=== PATIENT | female | born 1965 | race American Indian/Alaskan Native ===

== ENCOUNTER 2016-06-07 07:09 | Inpatient (IN) | payer OTHER ==
[2016-06-07 07:58] LABS: BUN/Creatinine Ratio 15.71; Calcium 9.5 mg/dL (8.4-10.2); Chloride 88.2 mmol/L (98-107)
[2016-06-07 08:02] LABS: Basophils % (Auto) 0.3 % (0.0-1.8); Hematocrit 39.1 % (30.3-42.9); Hemoglobin 12.4 gm/dl (10.1-14.3); Mean Corpuscular HGB Conc 32 % (30-34); Mean Corpuscular Hemoglobin 31 pg (28-32); Mean Corpuscular Volume 98 fl (79-97); Platelet Count 188 K/mm3 (140-440); Red Blood Count 3.97 M/mm3 (3.65-5.03); Red Cell Distribution Width 13.1 % (13.2-15.2); White Blood Count 5.3 K/mm3 (4.5-11.0)
[2016-06-07 08:07] LABS: Potassium 6.1 mmol/L (3.6-5.0)
[2016-06-07] MEDS ORDERED: NACL 0.9% 1000 ML 2,000 ML IV ONE (08:10)
[2016-06-07] MEDS ORDERED: ZOFRAN IV ONE (08:13)
[2016-06-07] MEDS ORDERED: BABY ASPIRIN PO ONE (08:13)
--- NOTE | 2016-06-07 08:13 | Emergency Department Report ---
HPI - General Chief Complaint: Nausea/Vomiting/Diarrhea Time Seen by Provider: 06/07/16 08:06 - HPI HPI: The patient is a 51-year-old female who presents for evaluation of chest pain, abdominal pain, nausea, and vomiting. The patient has history of diabetes. The patient states that her abdominal pain and chest pain began one day ago, having constant since onset, moderate in severity, cramping and squeezing in quality, exacerbated with vomiting. Chest has multiple episodes of nausea and nonbilious, nonbloody emesis. The patient denies fever, dyspnea, syncope, hemoptysis, diarrhea, blood in the stool, dark tarry stool, dysuria, hematuria, flank pain, genital discharge, inability to pass flatus. ED Past Medical Hx - Past Medical History Previous Medical History?: Yes Hx Hypertension: Yes Hx Congestive Heart Failure: No Hx Diabetes: Yes (iddm) Hx Headaches / Migraines: Yes Hx Asthma: No Hx COPD: No Additional medical history: fx R leg. high cholesterol - Surgical History Past Surgical History?: Yes Additional Surgical History: bilateral tubal ligation - Social History Smoking Status: Never Smoker Substance Use Type: Alcohol, Prescribed - Medications Home Medications: Home Medications Medication Instructions Recorded Confirmed Last Taken Type Amitriptyline [Elavil] 25 mg PO QHS 03/22/16 03/22/16 Unknown History Ascorbic Acid [Vitamin C] 500 mg PO TID 03/22/16 03/22/16 Unknown History Aspirin EC [Aspirin Enteric Coated 81 mg PO QDAY 03/22/16 03/22/16 Unknown History TAB] Cyanocobalamin [Vitamin B-12] 1,000 mcg IM QMONTH 03/22/16 03/22/16 Unknown History Docusate Sodium [Dok] 100 mg PO BID 03/22/16 03/22/16 Unknown History Enalapril Maleate [Vasotec] 10 mg PO BID 03/22/16 03/22/16 Unknown History Ferrous Sulfate [Feosol 325 MG tab] 325 mg PO TID 03/22/16 03/22/16 Unknown History Insulin Aspart [NovoLOG Flexpen] 6 units SQ AC 03/22/16 03/22/16 Unknown History Insulin Detemir [Levemir VIAL] 40 unit SQ BID 03/22/16 03/22/16 Unknown History Loratadine 10 mg PO DAILY 03/22/16 03/22/16 Unknown History Omeprazole 20 mg PO BID 03/22/16 03/22/16 Unknown History Pravastatin 80 mg PO QHS 03/22/16 03/22/16 Unknown History Zolpidem [Ambien] 10 mg PO QHS 03/22/16 03/22/16 Unknown History ED Review of Systems ROS: Stated complaint: NAUSEA/VOMITING Other details as noted in HPI Constitutional: denies: fever ENT: denies: throat or neck pain Respiratory: denies: cough, shortness of breath Cardiovascular: reports chest pain Endocrine: denies unexplained weight loss or gain Gastrointestinal: reports abdominal pain, nausea Genitourinary: denies: dysuria Musculoskeletal: denies: leg swelling Skin: denies: rash Neurological: denies: headache Hematological/Lymphatic: denies: easy bleeding or easy bruising Psych: denies sadness or hopelessness Physical Exam - Physical Exam Vital Signs: Vital Signs 06/07/16 06/07/16 07:18 08:09 Temperature 97.8 F Pulse Rate 113 H 100 H Respiratory 20 15 Rate Blood Pressure 130/70 Blood Pressure 132/63 [Right] O2 Sat by Pulse 100 100 Oximetry Physical Exam: General: well-nourished, well-developed, no acute distress Head: Normocephalic, atraumatic Eyes: normal sclera ENT: Mucous membranes are pale and dry Neck: No neck stiffness, no cervical adenopathy Respiratory: Breath sounds equal bilaterally, no wheezing, rales, or rhonchi Cardio: S1 and S2 present, no murmurs, rubs, gallops, capillary refill is delayed Abdomen: Normoactive bowel sounds, soft abdomen, generalized tenderness to palpation present, no rigidity, no guarding or rebound tenderness Musc: No pitting edema Skin: No rash Neuro: no facial drooping, normal speech Psych: Normal affect ED Course Vital Signs 06/07/16 06/07/16 07:18 08:09 Temperature 97.8 F Pulse Rate 113 H 100 H Respiratory 20 15 Rate Blood Pressure 130/70 Blood Pressure 132/63 [Right] O2 Sat by Pulse 100 100 Oximetry ED Medical Decision Making - Lab Data Result diagrams: 06/07/16 07:30 06/07/16 12:37 - Medical Decision Making The patient was seen and examined by myself. The patient is placed on a child monitor and continuous pulse ox. On initial evaluation, the patient was found to be in no distress. Evaluation orders were placed. The patient given 1 L normal saline fluid bolus for treatment of dehydration. The patient declined pain medicine. The patient is given IV Zofran for nausea and vomiting. Lab results reveal elevated potassium of 6, low pH 7.19, elevated glucose 324, elevated anion gap, and low bicarbonate, consistent with diabetic ketoacidosis. The patient is given IV insulin and started on insulin infusion for treatment of. The on-call hospitalist service was contacted. They agreed to admit the patient for further treatment and close monitoring. The ED admit order was placed. The patient was admitted in guarded condition. Critical care attestation.: If time is entered above; I have spent that time in minutes in the direct care of this critically ill patient, excluding procedure time. ED Disposition Clinical Impression: Dehydration, Acute hyperkalemia DKA (diabetic ketoacidoses) Qualifiers: Diabetes mellitus type: type 2 Diabetes mellitus complication detail: without coma Qualified Code(s): E13.10 - Other specified diabetes mellitus with ketoacidosis without coma Disposition: OP ADMITTED IP TO THIS HOSP Is pt being admited?: Yes Does the pt Need Aspirin: Yes Condition: Serious Instructions: Diabetic Ketoacidosis (ED) Referrals: PRIMARY CARE, [Primary Care Provider] - 3-5 Days Time of Disposition: 08:12
--- NOTE | 2016-06-07 08:27 | Emergency Department Report ---
HPI - General Chief Complaint: Nausea/Vomiting/Diarrhea Time Seen by Provider: 06/07/16 08:06 ED Past Medical Hx - Past Medical History Previous Medical History?: Yes Hx Hypertension: Yes Hx Congestive Heart Failure: No Hx Diabetes: Yes (iddm) Hx Headaches / Migraines: Yes Hx Asthma: No Hx COPD: No Additional medical history: fx R leg. high cholesterol - Surgical History Past Surgical History?: Yes Additional Surgical History: bilateral tubal ligation - Social History Smoking Status: Never Smoker Substance Use Type: Alcohol, Prescribed - Medications Home Medications: Home Medications Medication Instructions Recorded Confirmed Last Taken Type Amitriptyline [Elavil] 25 mg PO QHS 03/22/16 03/22/16 Unknown History Ascorbic Acid [Vitamin C] 500 mg PO TID 03/22/16 03/22/16 Unknown History Aspirin EC [Aspirin Enteric Coated 81 mg PO QDAY 03/22/16 03/22/16 Unknown History TAB] Cyanocobalamin [Vitamin B-12] 1,000 mcg IM QMONTH 03/22/16 03/22/16 Unknown History Docusate Sodium [Dok] 100 mg PO BID 03/22/16 03/22/16 Unknown History Enalapril Maleate [Vasotec] 10 mg PO BID 03/22/16 03/22/16 Unknown History Ferrous Sulfate [Feosol 325 MG tab] 325 mg PO TID 03/22/16 03/22/16 Unknown History Insulin Aspart [NovoLOG Flexpen] 6 units SQ AC 03/22/16 03/22/16 Unknown History Insulin Detemir [Levemir VIAL] 40 unit SQ BID 03/22/16 03/22/16 Unknown History Loratadine 10 mg PO DAILY 03/22/16 03/22/16 Unknown History Omeprazole 20 mg PO BID 03/22/16 03/22/16 Unknown History Pravastatin 80 mg PO QHS 03/22/16 03/22/16 Unknown History Zolpidem [Ambien] 10 mg PO QHS 03/22/16 03/22/16 Unknown History ED Review of Systems ROS: Stated complaint: NAUSEA/VOMITING Other details as noted in HPI Physical Exam - Physical Exam Vital Signs: Vital Signs 06/07/16 06/07/16 07:18 08:09 Temperature 97.8 F Pulse Rate 113 H 100 H Respiratory 20 15 Rate Blood Pressure 130/70 Blood Pressure 132/63 [Right] O2 Sat by Pulse 100 100 Oximetry ED Course Vital Signs 06/07/16 06/07/16 07:18 08:09 Temperature 97.8 F Pulse Rate 113 H 100 H Respiratory 20 15 Rate Blood Pressure 130/70 Blood Pressure 132/63 [Right] O2 Sat by Pulse 100 100 Oximetry ED Medical Decision Making - Lab Data Result diagrams: 06/07/16 07:30 06/07/16 07:30 Critical care attestation.: If time is entered above; I have spent that time in minutes in the direct care of this critically ill patient, excluding procedure time. ED Disposition Clinical Impression: DKA (diabetic ketoacidoses) Qualifiers: Diabetes mellitus type: type 2 Diabetes mellitus complication detail: without coma Qualified Code(s): E13.10 - Other specified diabetes mellitus with ketoacidosis without coma Disposition: OP ADMITTED IP TO THIS HOSP Is pt being admited?: Yes Does the pt Need Aspirin: Yes Condition: Serious Instructions: Diabetic Ketoacidosis (ED) Referrals: PRIMARY CARE, [Primary Care Provider] - 3-5 Days Time of Disposition: 08:27
[2016-06-07 08:46] LABS: Bilirubin,Urine NEG (Negative); Blood,Urine NEG (Negative); Ketones,Urine 80 mg/dL (Negative); Leukocyte Esterase,Urine NEG (Negative); Mucus,Urine FEW /HPF; Nitrite,Urine NEG (Negative); Protein,Urine <15 mg/dL mg/dL (Negative); RBC,Urine < 1.0 /HPF (0.0-6.0); Urobilinogen,Urine < 2.0 mg/dL (<2.0)
[2016-06-07 08:48] LABS: WBC,Urine < 1.0 /HPF (0.0-6.0)
[2016-06-07] MEDS ORDERED: D50W (25GM) IV PRN ×2 (10:13→12:20)
[2016-06-07 10:43] LABS: Magnesium 2.2 mg/dL (1.7-2.3); Phosphorous 7.4 mg/dL (2.5-4.5)
[2016-06-07] MEDS ORDERED: NovoLIN R 100 UNITS in NACL 0.9% 99 ML IV SCH ×2 (11:00→13:00)
[2016-06-07] MEDS ORDERED: BABY ASPIRIN ONE (11:39)
--- NOTE | 2016-06-07 12:17 | History and Physical Report ---
History of Present Illness Date of examination: 06/07/16 History of present illness: The patient is a 51-year-old female who presents for evaluation of chest pain, abdominal pain, nausea, and vomiting. The patient has history of diabetes. The patient states that her abdominal pain and chest pain began one day ago, having constant since onset, moderate in severity, cramping and squeezing in quality, exacerbated with vomiting. Chest has multiple episodes of nausea and nonbilious, nonbloody emesis. The patient denies fever, dyspnea, syncope, hemoptysis, diarrhea, blood in the stool, dark tarry stool, dysuria, hematuria, flank pain, genital discharge, inability to pass flatus. Past History Past Medical History: diabetes Medications and Allergies Allergies Allergy/AdvReac Type Severity Reaction Status Date / Time cetirizine HCl [From Zyrtec] Allergy Unknown Verified 03/22/16 14:55 Penicillins Allergy Unknown Verified 03/22/16 14:55 sumatriptan [From Imitrex] Allergy Unknown Verified 03/01/15 14:42 sumatriptan succinate Allergy Unknown Verified 03/22/16 14:55 [From Imitrex] Home Medications Medication Instructions Recorded Confirmed Last Taken Type Amitriptyline [Elavil] 25 mg PO QHS 03/22/16 03/22/16 Unknown History Ascorbic Acid [Vitamin C] 500 mg PO TID 03/22/16 03/22/16 Unknown History Aspirin EC [Aspirin Enteric Coated 81 mg PO QDAY 03/22/16 03/22/16 Unknown History TAB] Cyanocobalamin [Vitamin B-12] 1,000 mcg IM QMONTH 03/22/16 03/22/16 Unknown History Docusate Sodium [Dok] 100 mg PO BID 03/22/16 03/22/16 Unknown History Enalapril Maleate [Vasotec] 10 mg PO BID 03/22/16 03/22/16 Unknown History Ferrous Sulfate [Feosol 325 MG tab] 325 mg PO TID 03/22/16 03/22/16 Unknown History Insulin Aspart [NovoLOG Flexpen] 6 units SQ AC 03/22/16 03/22/16 Unknown History Insulin Detemir [Levemir VIAL] 40 unit SQ BID 03/22/16 03/22/16 Unknown History Loratadine 10 mg PO DAILY 03/22/16 03/22/16 Unknown History Omeprazole 20 mg PO BID 03/22/16 03/22/16 Unknown History Pravastatin 80 mg PO QHS 03/22/16 03/22/16 Unknown History Zolpidem [Ambien] 10 mg PO QHS 03/22/16 03/22/16 Unknown History Active Meds: Active Medications Dextrose (D50w (25gm)) 0 ml IV PRN PRN PRN Reason: Hypoglycemia Insulin Human Regular 100 (units/ Sodium Chloride) 100 mls @ 1 mls/hr IV TITR ELEANOR; 1 UNITS/HR PRN Reason: Protocol Last Titration: 06/07/16 11:48 Dose: 5 units/hr, 5 mls/hr Review of Systems Constitutional: fatigue, weakness, malaise, lethargy Exam - Constitutional Vitals: Temp Pulse Resp BP Pulse Ox 98 F 96 H 16 134/66 100 06/07/16 10:30 06/07/16 10:30 06/07/16 10:30 06/07/16 10:30 06/07/16 10:30 General appearance: Present: mild distress - EENT Eyes: Present: PERRL, EOM intact ENT: hearing intact, clear oral mucosa - Neck Neck: Present: supple, normal ROM - Respiratory Respiratory effort: normal Respiratory: bilateral: CTA - Cardiovascular Rhythm: regular Heart Sounds: Present: S1 & S2 - Extremities Extremities: no ischemia, No edema - Abdominal General gastrointestinal: Present: soft, non-tender, non-distended, normal bowel sounds - Musculoskeletal Musculoskeletal: strength equal bilaterally - Psychiatric Psychiatric: appropriate mood/affect, intact judgment & insight - Neurologic Neurologic: CNII-XII intact, moves all extremities Results - Labs CBC & Chem 7: 06/07/16 07:30 06/07/16 20:43 Labs: Laboratory Last Values WBC 5.3 K/mm3 (4.5-11.0) 06/07/16 07:30 RBC 3.97 M/mm3 (3.65-5.03) 06/07/16 07:30 Hgb 12.4 gm/dl (10.1-14.3) 06/07/16 07:30 Hct 39.1 % (30.3-42.9) 06/07/16 07:30 MCV 98 fl (79-97) H 06/07/16 07:30 MCH 31 pg (28-32) 06/07/16 07:30 MCHC 32 % (30-34) 06/07/16 07:30 RDW 13.1 % (13.2-15.2) L 06/07/16 07:30 Plt Count 188 K/mm3 (140-440) 06/07/16 07:30 Lymph % (Auto) 14.6 % (13.4-35.0) 06/07/16 07:30 [place] % (Auto) 6.7 % (0.0-7.3) 06/07/16 07:30 Eos % (Auto) 0.0 % (0.0-4.3) 06/07/16 07:30 Baso % (Auto) 0.3 % (0.0-1.8) 06/07/16 07:30 Lymph # 0.8 K/mm3 (1.2-5.4) L 06/07/16 07:30 [place] # 0.4 K/mm3 (0.0-0.8) 06/07/16 07:30 Eos # 0.0 K/mm3 (0.0-0.4) 06/07/16 07:30 Baso # 0.0 K/mm3 (0.0-0.1) 06/07/16 07:30 Seg Neutrophils % 78.4 % (40.0-70.0) H 06/07/16 07:30 Seg Neutrophils # 4.2 K/mm3 (1.8-7.7) 06/07/16 07:30 VBG pH 7.190 (7.320-7.420) L* 06/07/16 07:30 Sodium 130 mmol/L (137-145) L 06/07/16 07:30 Potassium 6.1 mmol/L (3.6-5.0) H* 06/07/16 07:30 Chloride 88.2 mmol/L (98-107) L 06/07/16 07:30 Carbon Dioxide 11 mmol/L (22-30) L 06/07/16 07:30 Anion Gap 37 mmol/L 06/07/16 07:30 BUN 22 mg/dL (7-17) H 06/07/16 07:30 Creatinine 1.4 mg/dL (0.7-1.2) H 06/07/16 07:30 Estimated GFR 48 ml/min 06/07/16 07:30 BUN/Creatinine Ratio 15.71 % 06/07/16 07:30 Glucose 595 mg/dL (65-100) H* 06/07/16 07:30 POC Glucose 256 (70-105) H 06/07/16 11:47 Calcium 9.5 mg/dL (8.4-10.2) 06/07/16 07:30 Phosphorus 7.40 mg/dL (2.5-4.5) H 06/07/16 07:30 Magnesium 2.20 mg/dL (1.7-2.3) 06/07/16 07:30 NT-Pro-B Natriuret Pep 107.2 pg/mL (0-900) 06/07/16 07:30 Urine Color Straw (Yellow) 06/07/16 07:43 Urine Turbidity Clear (Clear) 06/07/16 07:43 Urine pH 5.0 (5.0-7.0) 06/07/16 07:43 Ur Specific [place] 1.021 (1.003-1.030) 06/07/16 07:43 Urine Protein <15 mg/dl mg/dL (Negative) 06/07/16 07:43 Urine Glucose (UA) >=500 mg/dL (Negative) 06/07/16 07:43 Urine Ketones 80 mg/dL (Negative) 06/07/16 07:43 Urine Blood Neg (Negative) 06/07/16 07:43 Urine Nitrite Neg (Negative) 06/07/16 07:43 Urine Bilirubin Neg (Negative) 06/07/16 07:43 Urine Urobilinogen < 2.0 mg/dL (<2.0) 06/07/16 07:43 Ur Leukocyte Esterase Neg (Negative) 06/07/16 07:43 Urine WBC (Auto) < 1.0 /HPF (0.0-6.0) 06/07/16 07:43 Urine RBC (Auto) < 1.0 /HPF (0.0-6.0) 06/07/16 07:43 U Epithel Cells (Auto) 1.0 /HPF (0-13.0) 06/07/16 07:43 Urine Mucus Few /HPF 06/07/16 07:43 Assessment and Plan - Patient Problems (1) DKA (diabetic ketoacidoses) Current Visit: Yes Status: Acute Qualifiers: Diabetes mellitus type: type 2 Diabetes mellitus complication detail: without coma Qualified Code(s): E13.10 - Other specified diabetes mellitus with ketoacidosis without coma Plan to address problem: Admit to ICU, DKA protocol
[2016-06-07] MEDS ORDERED: DULCOLAX PR PRN (12:20)
[2016-06-07] MEDS ORDERED: NACL 0.9% 1000 ML 1,000 ML IV ONE (12:20)
[2016-06-07] MEDS ORDERED: MILK OF MAGNESIA PO PRN (12:20)
[2016-06-07] MEDS ORDERED: ALUM-MAG HYDROX-SIMETH 200-200-20MG/5ML PO PRN (12:20)
[2016-06-07] MEDS ORDERED: NON-FORMULARY (Enalapril Maleate [Vasotec] 10 MG) PO SCH (12:30)
[2016-06-07] MEDS ORDERED: NON-FORMULARY (Omeprazole 20 MG) PO SCH (12:30)
[2016-06-07] MEDS ORDERED: VITAMIN B-12 IM SCH (13:00)
[2016-06-07] MEDS ORDERED: LOVENOX SUB-Q SCH (13:00)
[2016-06-07 13:01] LABS: BUN/Creatinine Ratio 17.5; Calcium 8.7 mg/dL (8.4-10.2); Chloride 99.3 mmol/L (98-107); Potassium 4.6 mmol/L (3.6-5.0)
[2016-06-07 13:02] LABS: Magnesium 2.1 mg/dL (1.7-2.3); Phosphorous 3.9 mg/dL (2.5-4.5)
[2016-06-07] MEDS: ZESTRIL PO SCH ×2 (13:20→22:14)
[2016-06-07] MEDS: COLACE PO SCH ×2 (13:22→22:13)
[2016-06-07] MEDS: LOVENOX SUB-Q SCH (13:23)
[2016-06-07] MEDS ORDERED: NON-FORMULARY (Ascorbic Acid [Vitamin C] 500 MG) PO SCH (14:00)
[2016-06-07] MEDS: CLARITIN PO SCH (14:18)
[2016-06-07] MEDS: PROTONIX PO SCH ×2 (14:18→22:13)
[2016-06-07] MEDS: VITAMIN C PO SCH ×2 (14:19→22:13)
[2016-06-07] MEDS: FEOSOL PO SCH ×2 (14:19→22:13)
[2016-06-07 15:04] LABS: Anion Gap 23 mmol/L; BUN/Creatinine Ratio 17.27; Blood Urea Nitrogen 19 mg/dL (7-17); Calcium 8.1 mg/dL (8.4-10.2); Carbon Dioxide 14 mmol/L (22-30); Chloride 101.8 mmol/L (98-107); Glucose 230 mg/dL (65-100); Potassium 4.2 mmol/L (3.6-5.0); Sodium 135 mmol/L (137-145)
[2016-06-07] MEDS: D5W/0.45% NACL/KCL 20 MEQ 20 MEQ/1,000 ML BAG IV SCH (15:22)
--- NOTE | 2016-06-07 17:26 | Admit Criteria Form ---
Admission Criteria Documentation: DIABETES Clinical Indications for Admission to Inpatient Care (Place 'X' for any and all applicable criteria): Admission is indicated by presence of ALL (if I & II) or ANY ONE (if III or IV) of the following (1)(2)(3)(4): [X ]I. Diabetes is uncontrolled as indicated by ANY ONE of the following: [ X]a) Diabetic ketoacidosis as indicated by ALL of the following (8): [X ]i) Hyperglycemia (eg, plasma glucose greater than 200 mg /dL (11.1 mmol/L)) [X ]ii) Acidosis (eg, arterial pH less than 7.30, serum bicarbonate level less than 15 mEq/L (mmol/L)) [X ]iii) Moderate ketonuria or ketonemia [ ]b) Hyperglycemic hyperosmolar state as indicated by ALL of the following(9)(10): [ ]i) Neurologic dysfunction (eg, stupor, coma, hemiparesis , seizure)(13) [ ]ii) Plasma glucose greater than 600 mg/dL (33.3 mmol/L) [ ]iii) Serum osmolality greater than 320 mOsm/kg (mmol/kg) [ ]c) Severe signs or symptoms secondary to hyperglycemia indicated by ANY ONE of the following: [ ]i) Altered mental status(10) [ ]ii) Significant hypovolemia or dehydration [ ]iii) Intractable nausea or vomiting [ ]iv) Unexplained fever or severe infection [ ]v) Severe electrolyte abnormality (eg, hypokalemia, hyperkalemia, hypernatremia) [X ]II. Management at other levels of care (Also use Diabetes: Observation Care as appropriate) is not feasible because of ANY ONE of the following: [ ]a) Condition was not adequately corrected with treatment at other levels of care. [X ]b) Treatment at other levels of care is not appropriate because of condition severity (eg, hyperosmolar coma). [ ]III. Contraindications and/or Inappropriate clinical situations for Observational Care in patients with Diabetes, when ANY ONE of the following is required: [ ]a) Patient require specific diagnostic workup or therapeutic intervention 22 [ ]b) Patient with abnormal vital signs or altered mental status 23 [ ]IV. General contraindications and/or Inappropriate clinical situations for Observational Care in patients with Diabetes, when ANY ONE of the following is required: [ ]a) Prediction of prolongation of LOS based on ANY ONE of the following may be considered as a contraindication for observational care 2, 3, 4, 5, 6, 7, 8, 9, 10, 11 [ ]i) Age > 65 yrs. [ ]ii) Patient arriving by ambulance [ ]iii) Patient with high acuity [ ]iv) Patient requiring vital sign monitoring [ ]v) Patient on IV medication [ ]b) Systolic blood pressures 180mmHg 3,12 [ ]c) Patient with altered mental status including delirium and other alteration of consciousness, (3) [ ]d) Patient whose discharge disposition will be to a detention home or rehabilitation home should not be managed in Emergency Department Observation Unit. CMS rule requires 3 days hospital stay before such placement.3,13 [ ]e) Patient with failure to thrive due to broad array of etiologies 3,16,17 [ ]f) Inability to ambulate 3,14 Extended stay beyond goal length of stay may be needed for(3)(20): [ ]a) Treatment of precipitating causes [ ]b) Development of hypoglycemia [ ]c) Complications of treatment [ ]d) Complications of decompensated diabetes (eg, acute gastric dilatation, persistent metabolic or neurologic derangement) [ ]e) Active Comorbidities [ ]f) Older patients( 65 years or older) The original [employer] content created by [employer] has been revised. The portions of the content which have been revised are identified through the use of italic text or in bold,and [facility] has neither reviewed nor approved the modified material. All other unmodified content is copyright [employer]. Please see references footnoted in the original [employer] edition 2016 Admission Criteria Met: Yes
[2016-06-07 19:08] LABS: Anion Gap 16 mmol/L; Blood Urea Nitrogen 15 mg/dL (7-17); Calcium 8.1 mg/dL (8.4-10.2); Carbon Dioxide 20 mmol/L (22-30); Chloride 102.1 mmol/L (98-107); Glucose 205 mg/dL (65-100); Potassium 4.7 mmol/L (3.6-5.0); Sodium 133 mmol/L (137-145)
[2016-06-07 21:22] LABS: Anion Gap 17 mmol/L; BUN/Creatinine Ratio 15.55; Blood Urea Nitrogen 14 mg/dL (7-17); Calcium 8.4 mg/dL (8.4-10.2); Carbon Dioxide 20 mmol/L (22-30); Chloride 104.6 mmol/L (98-107); Glucose 113 mg/dL (65-100); Potassium 4.5 mmol/L (3.6-5.0); Sodium 137 mmol/L (137-145)
[2016-06-07] MEDS ORDERED: PRAVASTATIN 80 MG PO SCH (22:00)
[2016-06-07] MEDS: AMBIEN PO SCH (22:12)
[2016-06-07] MEDS: ZOCOR PO SCH (22:13)
[2016-06-08] MEDS: LEVEMIR SUB-Q SCH ×2 (00:49→22:37)
[2016-06-08] MEDS ORDERED: TYLENOL PO ONE (00:57)
[2016-06-08] MEDS: D5W/0.45% NACL/KCL 20 MEQ 20 MEQ/1,000 ML BAG IV SCH (02:26)
[2016-06-08 06:02] LABS: Anion Gap 21 mmol/L; BUN/Creatinine Ratio 11.11; Blood Urea Nitrogen 10 mg/dL (7-17); Calcium 8.2 mg/dL (8.4-10.2); Carbon Dioxide 17 mmol/L (22-30); Chloride 100.2 mmol/L (98-107); Glucose 368 mg/dL (65-100); Potassium 4.7 mmol/L (3.6-5.0); Sodium 133 mmol/L (137-145)
[2016-06-08] MEDS: FEOSOL PO SCH ×3 (09:03→20:17)
[2016-06-08] MEDS: VITAMIN C PO SCH ×3 (09:03→20:17)
[2016-06-08] MEDS: HALFPRIN EC PO SCH (09:03)
[2016-06-08] MEDS: LOVENOX SUB-Q SCH (09:04)
[2016-06-08] MEDS: ZESTRIL PO SCH ×2 (09:04→21:05)
[2016-06-08] MEDS: NOVOLOG SUB-Q SCH ×4 (09:04→22:40)
[2016-06-08] MEDS: COLACE PO SCH ×2 (09:05→21:05)
[2016-06-08] MEDS: PROTONIX PO SCH ×2 (09:05→21:05)
[2016-06-08] MEDS: CLARITIN PO SCH (09:05)
[2016-06-08] MEDS ORDERED: LEVEMIR SUB-Q SCH (10:00)
[2016-06-08] MEDS: NACL 0.9% 1000 ML 1,000 ML IV SCH (11:39)
[2016-06-08] MEDS ORDERED: D50W (25GM) IV PRN (12:07)
--- NOTE | 2016-06-08 12:11 | Progress Note ---
Assessment and Plan Assessment and plan: The patient is a 51-year-old female who presents for evaluation of chest pain, abdominal pain, nausea, and vomiting. Found to have DKA 1. Uncontrolled diabetes DKA Anion gap has closed, patient is being transitioned to subcutaneous insulins, 2. Chronic anemia Continue iron supplement 3. Hypertension Continue RONEL inhibitor 4. GERD Continue PPI 5. Hyperlipidemia Continue statin 6. Cough obtain CXR Critical care time 32 minutes The patient continues to improve we'll consider transferring to the floors later today. History Interval history: Nausea vomiting and abdominal pain have now resolved. she thinks it was a reaction to taking codeine, is c/o cough Hospitalist Physical - Physical exam Narrative exam: General: Patient appears well in no distress HEENT: MMM, EOMI cardiac: S1-S2 heard lungs: rhonchi in RUL abdomen: soft, nontender, nondistended bowel sounds positive extremities: no edema clubbing or cyanosis Skin: no rash or lesion Neuro: no focal deficit Psych: appropriate behavior and mood, cognition intact - Constitutional Vitals: Temp Pulse Resp BP Pulse Ox 98.8 F 88 16 128/73 98 06/08/16 08:00 06/08/16 11:51 06/08/16 11:51 06/08/16 11:51 06/08/16 11:51 Results - Labs CBC & Chem 7: 06/07/16 07:30 06/08/16 13:56 Labs: Laboratory Last Values WBC 5.3 K/mm3 (4.5-11.0) 06/07/16 07:30 RBC 3.97 M/mm3 (3.65-5.03) 06/07/16 07:30 Hgb 12.4 gm/dl (10.1-14.3) 06/07/16 07:30 Hct 39.1 % (30.3-42.9) 06/07/16 07:30 MCV 98 fl (79-97) H 06/07/16 07:30 MCH 31 pg (28-32) 06/07/16 07:30 MCHC 32 % (30-34) 06/07/16 07:30 RDW 13.1 % (13.2-15.2) L 06/07/16 07:30 Plt Count 188 K/mm3 (140-440) 06/07/16 07:30 Lymph % (Auto) 14.6 % (13.4-35.0) 06/07/16 07:30 [place] % (Auto) 6.7 % (0.0-7.3) 06/07/16 07:30 Eos % (Auto) 0.0 % (0.0-4.3) 06/07/16 07:30 Baso % (Auto) 0.3 % (0.0-1.8) 06/07/16 07:30 Lymph # 0.8 K/mm3 (1.2-5.4) L 06/07/16 07:30 [place] # 0.4 K/mm3 (0.0-0.8) 06/07/16 07:30 Eos # 0.0 K/mm3 (0.0-0.4) 06/07/16 07:30 Baso # 0.0 K/mm3 (0.0-0.1) 06/07/16 07:30 Seg Neutrophils % 78.4 % (40.0-70.0) H 06/07/16 07:30 Seg Neutrophils # 4.2 K/mm3 (1.8-7.7) 06/07/16 07:30 VBG pH 7.190 (7.320-7.420) L* 06/07/16 07:30 Sodium 133 mmol/L (137-145) L 06/08/16 04:18 Potassium 4.7 mmol/L (3.6-5.0) 06/08/16 04:18 Chloride 100.2 mmol/L (98-107) 06/08/16 04:18 Carbon Dioxide 17 mmol/L (22-30) L 06/08/16 04:18 Anion Gap 21 mmol/L 06/08/16 04:18 BUN 10 mg/dL (7-17) 06/08/16 04:18 Creatinine 0.9 mg/dL (0.7-1.2) 06/08/16 04:18 Estimated GFR > 60 ml/min 06/08/16 04:18 BUN/Creatinine Ratio 11.11 % 06/08/16 04:18 Glucose 368 mg/dL (65-100) H 06/08/16 04:18 POC Glucose 305 (70-105) H 06/08/16 08:30 Calcium 8.2 mg/dL (8.4-10.2) L 06/08/16 04:18 Phosphorus 3.90 mg/dL (2.5-4.5) D 06/07/16 12:37 Magnesium 2.10 mg/dL (1.7-2.3) 06/07/16 12:37 NT-Pro-B Natriuret Pep 107.2 pg/mL (0-900) 06/07/16 07:30 Urine Color Straw (Yellow) 06/07/16 07:43 Urine Turbidity Clear (Clear) 06/07/16 07:43 Urine pH 5.0 (5.0-7.0) 06/07/16 07:43 Ur Specific [place] 1.021 (1.003-1.030) 06/07/16 07:43 Urine Protein <15 mg/dl mg/dL (Negative) 06/07/16 07:43 Urine Glucose (UA) >=500 mg/dL (Negative) 06/07/16 07:43 Urine Ketones 80 mg/dL (Negative) 06/07/16 07:43 Urine Blood Neg (Negative) 06/07/16 07:43 Urine Nitrite Neg (Negative) 06/07/16 07:43 Urine Bilirubin Neg (Negative) 06/07/16 07:43 Urine Urobilinogen < 2.0 mg/dL (<2.0) 06/07/16 07:43 Ur Leukocyte Esterase Neg (Negative) 06/07/16 07:43 Urine WBC (Auto) < 1.0 /HPF (0.0-6.0) 06/07/16 07:43 Urine RBC (Auto) < 1.0 /HPF (0.0-6.0) 06/07/16 07:43 U Epithel Cells (Auto) 1.0 /HPF (0-13.0) 06/07/16 07:43 Urine Mucus Few /HPF 06/07/16 07:43
[2016-06-08 14:42] LABS: Anion Gap 17 mmol/L; Blood Urea Nitrogen 8 mg/dL (7-17); Calcium 8.3 mg/dL (8.4-10.2); Carbon Dioxide 20 mmol/L (22-30); Chloride 104.5 mmol/L (98-107); Glucose 187 mg/dL (65-100); Sodium 137 mmol/L (137-145)
[2016-06-08] MEDS: ZOCOR PO SCH (21:05)
[2016-06-08] MEDS: AMBIEN PO SCH (21:05)
[2016-06-08] MEDS ORDERED: ZESTRIL PO SCH (22:52)
[2016-06-09] MEDS: NACL 0.9% 1000 ML 1,000 ML IV SCH (06:44)
[2016-06-09] MEDS ORDERED: NON-FORMULARY (Insulin Aspart [Novolog Flexpen] 6 UNITS) SQ SCH (07:30)
[2016-06-09] MEDS: NOVOLOG SUB-Q SCH ×4 (07:30→13:24)
--- NOTE | 2016-06-09 07:51 | XRay Report ---
ROUTINE CHEST, TWO VIEWS: HISTORY: Cough. The trachea, heart, mediastinal contour, lung gaitan and bony thorax are unremarkable. IMPRESSION: Unremarkable chest x-ray.
[2016-06-09 08:06] VITALS: BP 124/76
--- NOTE | 2016-06-09 08:21 | Discharge Summary ---
Providers - Providers Date of Admission: 06/07/16 14:09 Attending physician: EFRAÍN MARLEY MD Primary care physician: INSTALLATION SERVICE REPRESENTATIVE Hospitalization Condition: Serious Hospital course: The patient is a 51-year-old female who presents for evaluation of chest pain, abdominal pain, nausea, and vomiting. Found to have DKA. She was admitted to critical care unit treated her with IV fluids and insulin drip. Anion gap closes transitioned to subcutaneous insulin. As patient had been complaining of dry cough, she had a chest x-ray that was negative for pneumonia. Blood pressure was uncontrolled, therefore her medications were optimized. Diagnoses 1. Uncontrolled diabetes DKA 2. Chronic anemia 3. Hypertension 4. GERD 5. Hyperlipidemia Disposition: DISCHARGED TO HOME OR SELFCARE Time spent for discharge: 35 minutes Core Measure Documentation - Palliative Care Palliative Care/ Comfort Measures: Not Applicable - Core Measures Any of the following diagnoses?: none Exam - Constitutional Vitals: Temp Pulse Resp BP Pulse Ox 98.2 F 89 18 124/76 98 06/09/16 07:20 06/09/16 07:20 06/09/16 07:20 06/09/16 07:20 06/09/16 07:20 General appearance: Present: no acute distress, well-nourished - EENT Eyes: Present: PERRL ENT: hearing intact, clear oral mucosa - Neck Neck: Present: supple, normal ROM - Respiratory Respiratory effort: normal Respiratory: bilateral: CTA - Cardiovascular Heart Sounds: Present: S1 & S2. Absent: rub, click - Extremities Extremities: pulses symmetrical, No edema Peripheral Pulses: within normal limits - Abdominal General gastrointestinal: Present: soft, non-tender, non-distended, normal bowel sounds Female genitourinary: Present: normal - Integumentary Integumentary: Present: clear, warm, dry - Musculoskeletal Musculoskeletal: gait normal, strength equal bilaterally - Psychiatric Psychiatric: appropriate mood/affect, intact judgment & insight - Neurologic Neurologic: CNII-XII intact, moves all extremities Plan Follow up with: PRIMARY CARE, [Primary Care Provider] - 3-5 Days Prescriptions: Enalapril Maleate [Vasotec] 20 mg PO BID 30 Days Hydrochlorothiazide [HCTZ] 25 mg PO QDAY #30 tablet Lisinopril [Zestril TAB] 20 mg PO BID #60 tablet
[2016-06-09] MEDS: FEOSOL PO SCH ×2 (09:08→13:24)
[2016-06-09] MEDS: CLARITIN PO SCH (09:08)
[2016-06-09] MEDS: HALFPRIN EC PO SCH (09:08)
[2016-06-09] MEDS: COLACE PO SCH (09:08)
[2016-06-09] MEDS: PROTONIX PO SCH (09:08)
[2016-06-09] MEDS: VITAMIN C PO SCH ×2 (09:09→13:24)
[2016-06-09] MEDS: LOVENOX SUB-Q SCH (09:10)
--- NOTE | 2016-06-09 09:29 | Query- Renal Failure ---
Esperanza Mitchell__[place] Date:__06/09/16 Medication Coordinator/CDS:Massimo Byrd Phone#:[phone] Exercise your independent professional judgment when responding to query. Questions asked do not imply a particular answer is desired or expected. We greatly appreciate your clarification on this issue. Clinical Documentation States: The patient is a 51-year-old female who presents for evaluation of chest pain, abdominal pain, nausea, and vomiting. The patient has history of diabetes. The patient states that her abdominal pain and chest pain began one day ago, having constant since onset, moderate in severity, cramping and squeezing in quality, exacerbated with vomiting Clinical Findings Show: 06/07 06/08 Creat: 1.4 0.8 BUN 22 8 Please clarify if you mean: Acute Renal Failure with or due to: [ ] Tubular Necrosis [ ] Medullary Necrosis [ x] Vasomotor Nephropathy [ ] Shock Kidney [ ] Tubular Nephrosis [ ] Renal Tubular Stasis [ ] Cortical Necrosis [ ] Acute Renal Failure (unspecified) [ ] Lower Tubular Nephrosis [ ] Other: [ ] Not Applicable Present on Admission: [ x] Yes (Y) [ ] Clinically undeterminable (W) [ ] No (N) Please also document response in your Progress Notes and/or Discharge Summary and indicate if the condition was present on admission. SNOW
[2016-06-09] MEDS ORDERED: LEVEMIR SUB-Q SCH (10:00)
[2016-06-09] MEDS ORDERED: HCTZ PO SCH (10:00)
[2016-06-09] MEDS ORDERED: ZESTRIL PO SCH (10:00)
[2016-06-11 23:30] LABS: B-Hydroxybutyrate 7.6 mmol/L (0.2 - 0.28)
== END 2016-06-09 15:00 | disposition home or self-care (01) | DRG 682 ==
LOC: ED 07:09 → CC1 14:09 → 3A 06-08 16:05
PROVIDERS: ADMIT Internal Medicine; ATTEND Internal Medicine
DX: N17.0 Acute kidney failure with tubular necrosis (principal); E13.10 Other specified diabetes mellitus with ketoacidosis without coma; K21.9 Gastro-esophageal reflux disease without esophagitis; I10 Essential (primary) hypertension; E86.0 Dehydration; E87.5 Hyperkalemia; D64.9 Anemia, unspecified; E78.5 Hyperlipidemia, unspecified; Z88.1 Allergy status to other antibiotic agents; Z88.0 Allergy status to penicillin; Z88.8 Allergy status to other drugs, medicaments and biological substances; Z98.51 Tubal ligation status; Z79.82 Long term (current) use of aspirin; Z79.4 Long term (current) use of insulin
CPT/HCPCS: 36415; 71020; 80048; 81001; 82010; 82805; 82962; 83735; 83880; 84100; 85025; 96361; 96372; 96374; J1650; J1815; J1818; J2405; J3420; J7030